=== PATIENT | male | born 1955 | race Caucasian/White ===

== ENCOUNTER 2022-12-06 17:19 | Emergency (ER) | payer MEDICARE, MEDICAID ==
[~2022-12-06] VITALS: Ht 170.2 cm; Wt 59.1 kg
[~2022-12-06 17:19] MED LIST: FERR324T3 PO; FLO0.4C PO; FOLI1TAB27 PO; LIDO700A32 TOP; MULT-25 PO; NO HOME MEDS; OXYC-150 PO; PANT40TA54 PO; THIA50TA10 PO
[2022-12-06 18:43] LABS: ALANINE AMINOTRANSFERASE 41 U/L (12-78); ALBUMIN 3.3 G/DL (3.4-5.0); ALBUMIN/GLOBULIN RATIO 0.9 (1.1-1.5); ALKALINE PHOSPHATASE 64 IU/L (46-116); ANION GAP 10 (8-16); ASPARTATE AMINO TRANSFERASE 30 U/L (10-37); BILIRUBIN,TOTAL 0.3 MG/DL (0.1-1.0); BLOOD UREA NITROGEN 58 MG/DL (7-18); BUN/CREATININE RATIO 10.8 (10.0-20.0); CALCIUM 8.4 MG/DL (8.5-10.1); CHLORIDE 106 MMOL/L (99-107); CREATININE 5.36 MG/DL (0.60-1.10); GLUCOSE 115 MG/DL (70-104); POTASSIUM 3.7 MMOL/L (3.5-5.1); SODIUM 141 MMOL/L (135-145); TOTAL CARBON DIOXIDE 25.1 MMOL/L (24-32); TOTAL PROTEIN 6.9 G/DL (6.4-8.2); eCRCL 11 ML/MIN; eGFR 11 ML/MIN
[2022-12-06 18:54] LABS: MEAN PLATELET VOLUME 7.3 FL (7.4-10.4); WHITE BLOOD COUNT 8.1 X10'3 (4.5-11.0)
[2022-12-06 18:56] LABS: BASOPHILS # (AUTO) 0.1 X10'3 (0-0.2); EOSINOPHILS # (AUTO) 0.2 X10'3 (0-0.9); EOSINOPHILS % (AUTO) 2.7 % (0-6); HEMATOCRIT 28.7 % (42.0-52.0); HEMOGLOBIN 9.7 g/dl (14.0-17.9); LYMPHOCYTES # (AUTO) 0.9 X10'3 (1.1-4.8); LYMPHOCYTES % (AUTO) 11.3 % (21-51); MEAN CORPUSCULAR HEMOGLOBIN 32.1 PG (27.0-31.0); MEAN CORPUSCULAR HGB CONC 33.8 g/dL (33.0-36.5); MONOCYTES # (AUTO) 0.6 X10'3 (0-0.9); MONOCYTES % (AUTO) 7.1 % (2-12); NEUTROPHILS # (AUTO) 6.3 X10'3 (1.8-7.7); NEUTROPHILS % (AUTO) 77.9 % (42-75); PLATELET COUNT 368 X10'3 (140-440); RED BLOOD COUNT 3.03 X10'6 (4.70-6.10); RED CELL DISTRIBUTION WIDTH 14.3 % (11.5-14.5)
[2022-12-06] MEDS ORDERED: oxyCODONE/APAP 10/325mg tablet PO ONE (21:25)
[2022-12-06] MEDS ORDERED: OXYC-150 PO (21:27)
[2022-12-06 22:34] VITALS: BP 127/77; PULSE 92; RESP 16; TEMP 98; O2SAT 97
== END 2022-12-06 22:36 | disposition home or self-care (01) ==
LOC: ER 17:20
DX: R33.9 Retention of urine, unspecified (principal); F17.200 Nicotine dependence, unspecified, uncomplicated; Z79.899 Other long term (current) drug therapy; Z88.8 Allergy status to other drugs, medicaments and biological substances
CPT/HCPCS: 36415; 80053; 85025; 93005; 99284

== ENCOUNTER 2022-12-11 11:38 | Emergency (ER) | payer MEDICARE, MEDICAID ==
[~2022-12-11] VITALS: Ht 170.2 cm; Wt 63.4 kg
[2022-12-11 13:21] VITALS: BP 152/78; PULSE 65; RESP 16; TEMP 97.7; O2SAT 98
--- NOTE | 2022-12-11 18:35 | NUR ---
I AGREE WITH THE ASSESSMENT PER Elliott BAR LVN.
== END 2022-12-11 13:23 | disposition home or self-care (01) ==
LOC: ER 11:39
DX: T83.031A Leakage of indwelling urethral catheter, initial encounter (principal); R33.9 Retention of urine, unspecified; Z46.6 Encounter for fitting and adjustment of urinary device
CPT/HCPCS: 99281; A4358; A5200; C1758

== ENCOUNTER 2022-12-13 15:48 | Emergency (ER) | payer MEDICARE, MEDICAID ==
[~2022-12-13] VITALS: Ht 172.7 cm; Wt 59.1 kg
[2022-12-13 15:55] VITALS: BP 193/109; PULSE 65; TEMP 96.5; O2SAT 94
[2022-12-13] MEDS ORDERED: LidoCAINE 2% Topical Jelly 11mL syringe TOP ONE (16:05)
[2022-12-13 16:24] VITALS: RESP 16
== END 2022-12-13 17:31 | disposition home or self-care (01) ==
LOC: ER 15:48
DX: T85.9XXA Unspecified complication of internal prosthetic device, implant and graft, initial encounter (principal)
CPT/HCPCS: 51702; 99284

== ENCOUNTER 2023-03-06 00:25 | Emergency (ER) | payer MEDICARE, MEDICAID ==
[~2023-03-06] VITALS: Ht 170.2 cm; Wt 62.0 kg
[~2023-03-06 00:25] MED LIST changes: -FLO0.4C PO
[2023-03-06 00:58] VITALS: BP 170/101; PULSE 86; RESP 18; TEMP 98.3; O2SAT 95
== END 2023-03-06 05:55 | disposition left against medical advice (07) ==
LOC: ER 00:26
DX: T83.098A Other mechanical complication of other urinary catheter, initial encounter (principal); Z53.21 Procedure and treatment not carried out due to patient leaving prior to being seen by health care provider
CPT/HCPCS: 99281

== ENCOUNTER 2023-05-14 22:05 | Emergency (ER) | payer MEDICARE, MEDICAID ==
[~2023-05-14] VITALS: Ht 170.2 cm; Wt 63.6 kg
[2023-05-14] MEDS ORDERED: FLO0.4C PO (23:09)
[2023-05-14 23:16] VITALS: BP 144/88; PULSE 89; RESP 20; TEMP 98.3; O2SAT 100
== END 2023-05-14 23:20 | disposition home or self-care (01) ==
LOC: ER 22:06
DX: R30.9 Painful micturition, unspecified (principal); Z79.899 Other long term (current) drug therapy
CPT/HCPCS: 99281

== ENCOUNTER 2023-07-15 22:33 | Emergency (ER) | payer MEDICARE, MEDICAID ==
[~2023-07-15] VITALS: Ht 170.2 cm; Wt 59.1 kg
[2023-07-15 23:07] VITALS: BP 136/82; PULSE 83; RESP 18; TEMP 98.3; O2SAT 99
== END 2023-07-16 02:21 | disposition left against medical advice (07) ==
LOC: ER 22:34
DX: Z46.6 Encounter for fitting and adjustment of urinary device (principal); Z53.21 Procedure and treatment not carried out due to patient leaving prior to being seen by health care provider

== ENCOUNTER 2023-09-05 06:23 | Emergency (ER) | payer MEDICARE, MEDICAID ==
[~2023-09-05] VITALS: Ht 170.2 cm; Wt 63.1 kg
[~2023-09-05 06:23] MED LIST changes: -FERR324T3 PO; +FLO0.4C PO; -FOLI1TAB27 PO; -LIDO700A32 TOP; -MULT-25 PO; -NO HOME MEDS; -OXYC-150 PO; -PANT40TA54 PO; -THIA50TA10 PO
[2023-09-05 06:44] VITALS: TEMP 97.8
[2023-09-05] MEDS: tamsulosin 0.4mg capsule PO ONE (08:20)
[2023-09-05] MEDS: phenazopyridine 100mg tablet PO ONE (08:20)
[2023-09-05] MEDS: LidoCAINE 2% Topical Jelly 11mL syringe (UROJET) TOP ONE (08:20)
[2023-09-05 08:54] LABS: BILIRUBIN,URINE NEGATIVE (Neg); CLARITY,URINE CLEAR (Clear); COLOR,URINE YELLOW (Yellow); GLUCOSE, URINE NEGATIVE (Neg); KETONES,URINE NEGATIVE (Neg); LEUKOCYTE ESTERASE ,URINE NEGATIVE (Neg); OCCULT BLOOD,URINE SMALL (Neg); PROTEIN,URINE NEGATIVE (Neg); UROBILINOGEN,URINE 0.2 E.U/dL (0.2-1.0)
[2023-09-05 08:57] LABS: UA COLLECTION TYPE STRAIGHT CATH
[2023-09-05 08:59] LABS: NITRITES, URINE NEGATIVE (Neg)
[2023-09-05 09:09] LABS: SQUAMOUS EPITHELIAL CELL,UR NONE SEEN /LPF (FEW)
[2023-09-05 09:11] LABS: BACTERIA,URINE FEW /HPF (Neg)
[2023-09-05] MEDS ORDERED: CEPH-585 PO (09:47)
[2023-09-05] MEDS ORDERED: FLO0.4C PO (09:47)
[2023-09-05] MEDS: cephalexin 250mg capsule PO ONE (10:02)
[2023-09-05 10:03] VITALS: BP 167/101; PULSE 79; RESP 14; O2SAT 100
== END 2023-09-05 10:10 | disposition home or self-care (01) ==
LOC: ER 06:23
DX: N39.0 Urinary tract infection, site not specified (principal); R33.9 Retention of urine, unspecified; F17.200 Nicotine dependence, unspecified, uncomplicated; Z79.899 Other long term (current) drug therapy
CPT/HCPCS: 81001; 87088; 99284; A4314

== ENCOUNTER 2023-09-26 21:21 | Emergency (ER) | payer MEDICARE, MEDICAID ==
[~2023-09-26] VITALS: Ht 170.2 cm; Wt 65.9 kg
[2023-09-26 21:44] VITALS: TEMP 98.8
[2023-09-26] MEDS: LIDOcaine 1% W/epiNEPHrine 1:100,000 20ml vial SQ ONE (22:55)
[2023-09-27 01:19] LABS: BILIRUBIN,URINE NEGATIVE (Neg); CLARITY,URINE CLEAR (Clear); COLOR,URINE STRAW (Yellow); GLUCOSE, URINE NEGATIVE (Neg); KETONES,URINE NEGATIVE (Neg); LEUKOCYTE ESTERASE ,URINE NEGATIVE (Neg); NITRITES, URINE NEGATIVE (Neg); OCCULT BLOOD,URINE NEGATIVE (Neg); PROTEIN,URINE NEGATIVE (Neg); UROBILINOGEN,URINE 0.2 E.U/dL (0.2-1.0)
[2023-09-27 01:20] LABS: UA COLLECTION TYPE CLN CATCH MIDSTREAM
[2023-09-27 01:36] VITALS: BP 159/89; PULSE 87; RESP 15; O2SAT 98
== END 2023-09-27 01:45 | disposition home or self-care (01) ==
LOC: ER 21:22
DX: D17.0 Benign lipomatous neoplasm of skin and subcutaneous tissue of head, face and neck (principal); F17.200 Nicotine dependence, unspecified, uncomplicated; Z79.899 Other long term (current) drug therapy; Z59.00 Homelessness unspecified; Z85.89 Personal history of malignant neoplasm of other organs and systems
CPT/HCPCS: 10060; 81003; 99283; Z7610

== ENCOUNTER 2024-05-02 02:31 | Emergency (ER) | payer MEDICARE, MEDICAID ==
[~2024-05-02] VITALS: Ht 170.2 cm; Wt 58.4 kg
[2024-05-02 02:51] LABS: BILIRUBIN,URINE NEGATIVE (Neg); CLARITY,URINE CLOUDY (Clear); COLOR,URINE YELLOW (Yellow); GLUCOSE, URINE 100 mg/dl (Neg); KETONES,URINE NEGATIVE (Neg); LEUKOCYTE ESTERASE ,URINE LARGE (Neg); NITRITES, URINE NEGATIVE (Neg); OCCULT BLOOD,URINE MODERATE (Neg); PROTEIN,URINE 30 mg/dl (Neg); UROBILINOGEN,URINE 0.2 E.U/dL (0.2-1.0)
[2024-05-02 02:54] LABS: UA COLLECTION TYPE VOIDED
[2024-05-02 03:00] LABS: BACTERIA,URINE 2+ /HPF (Neg); SQUAMOUS EPITHELIAL CELL,UR FEW /LPF (FEW); WBC,URINE TNTC /HPF (0-4)
[2024-05-02 03:04] LABS: BASOPHILS # (AUTO) 0.1 X10'3 (0-0.2); BASOPHILS % (AUTO) 0.7 % (0-1); EOSINOPHILS # (AUTO) 0.2 X10'3 (0-0.9); EOSINOPHILS % (AUTO) 2.2 % (0-6); HEMATOCRIT 30.6 % (42.0-52.0); LYMPHOCYTES # (AUTO) 1.3 X10'3 (1.1-4.8); LYMPHOCYTES % (AUTO) 11.5 % (21-51); MEAN CORPUSCULAR HEMOGLOBIN 30.5 PG (27.0-31.0); MEAN CORPUSCULAR HGB CONC 32.8 g/dL (33.0-36.5); MEAN CORPUSCULAR VOLUME 93.1 FL (78-98); MONOCYTES # (AUTO) 1.3 X10'3 (0-0.9); NEUTROPHILS % (AUTO) 73.6 % (42-75); PLATELET COUNT 427 X10'3 (140-440); RED BLOOD COUNT 3.29 X10'6 (4.70-6.10); RED CELL DISTRIBUTION WIDTH 14.5 % (11.5-14.5); WHITE BLOOD COUNT 10.9 X10'3 (4.5-11.0)
[2024-05-02 03:21] LABS: ALANINE AMINOTRANSFERASE 49 U/L (12-78); ALBUMIN 2.9 G/DL (3.4-5.0); ALBUMIN/GLOBULIN RATIO 0.5 (1.1-1.5); ALKALINE PHOSPHATASE 93 IU/L (46-116); ANION GAP 20 (8-16); ASPARTATE AMINO TRANSFERASE 43 U/L (10-37); BILIRUBIN,TOTAL 0.5 MG/DL (0.1-1.0); CALCIUM 6.5 MG/DL (8.5-10.1); CHLORIDE 103 MMOL/L (99-107); CREATININE 11.74 MG/DL (0.60-1.10); GLUCOSE 100 MG/DL (70-104); POTASSIUM 4.4 MMOL/L (3.5-5.1); SODIUM 139 MMOL/L (135-145); TOTAL CARBON DIOXIDE 15.8 MMOL/L (24-32); TOTAL PROTEIN 8.6 G/DL (6.4-8.2); eCRCL 5 ML/MIN; eGFR 4 ML/MIN
[2024-05-02 03:26] LABS: BLOOD UREA NITROGEN 166 MG/DL (7-18); BUN/CREATININE RATIO 14.1 (10.0-20.0)
[2024-05-02] MEDS ORDERED: CEPH-585 PO (04:12)
[2024-05-02] MEDS: CefTRIAXone 1000mg IM Kit (w/lidocaine diluent) IM ONE (04:48)
[2024-05-02 04:53] VITALS: BP 165/99; PULSE 95; RESP 16; TEMP 98.6; O2SAT 99
[2024-05-04] MEDS ORDERED: CIPR-202 PO (11:10)
== END 2024-05-02 04:55 | disposition home or self-care (01) ==
LOC: ER 02:31
DX: N39.0 Urinary tract infection, site not specified (principal)
CPT/HCPCS: 36415; 80053; 81001; 84145; 85025; 87088; 96372; 99283; J0696; 87077; 87186

== ENCOUNTER 2024-06-28 21:22 | Emergency (ER) | payer MEDICARE, MEDICAID ==
[~2024-06-28] VITALS: Ht 170.2 cm; Wt 47.5 kg
[~2024-06-28 21:22] MED LIST changes: -FLO0.4C PO; +TAMS-55 PO
[2024-06-28 21:43] VITALS: BP 106/82; PULSE 99; RESP 15; TEMP 98.6; O2SAT 98
--- NOTE | 2024-06-29 00:37 | Physician Documentation ---
History of Present Illness ~ General Chief Complaint: General Stated Complaint: MUTIPLE ISSUES Time Seen by MD: 00:36 Primary Medical Doctor: Jessica Vieira MD History of Present Illness Initial Comments Patient presents to the emergency room requesting his urostomy bags in tunnel cath taken out. I asked who his doctors ours that are managing and he states he has no doctors Medication Reconciliation Allergies: Coded Allergies: No Known Allergies (Unverified , 06/28/24) Scheduled Tamsulosin Hcl* (Flomax*), 1 CAP PO DAILY, (Reported) Past Medical History Past Medical History: *RENAL/*, *CANCER* Past Surgical History: noncontributory Patient History: Patient reports no known family medical history. Alcohol Use: Sober Lives In: Homeless Review of Systems ROS All review of systems negative except as per HPI Physical Exam Physical Exam Vital Signs: Temperature: 98.6, Source: Temporal, Heart Rate: 99, Respiratory Rate: 15, BP: 106/82, Pulse Oximetry: 98, Weight: 47.500 Physical Exam General: Patient is sleeping easily aroused and irritable Head: Normocephalic and atraumatic. Eyes: Conjunctival normal. EOMI. PERRL. ENT: Mucous membranes moist. Neck: Supple, trachea is midline. Chest: Clear to auscultation bilaterally without rales, rhonchi, or wheezes. There is no accessory muscle use or retractions. Tunneled cath in right upper chest wall no signs of infection Cardiac: RRR without murmurs, gallops, or rubs. Abd: Soft, nondistended, nontender, with normoactive bowel sounds. No guarding, rebound, or rigidity. Back: Two nephrostomy tubes in place that are functioning : Alston catheter placed that has functioning Progress Results/Orders Results/Orders Vital Signs 06/28/24 21:43 Temp 98.6 Pulse 99 Resp 15 B/P (MAP) 106/82 Pulse Ox 98 Medical Decision Making Findings Patient presents to the emergency room asking for his dialysis catheter be removed in his urostomy tubes to be pulled. He initially stated that he does not have any doctors. Upon review of medical records he has established at [facility] in his Dr. Dhillon on board regarding his kidneys. I will defer to them for management. I explained to him that we do not pull these tubes electively in the emergency room. No obvious signs of infection. Vital signs are stable and I do not feel emergent labs or imaging is necessary. We have given him new bags Departure Disposition: HOME / SELF CARE / HOMELESS Impression: Primary Impression: General medical exam Condition: Stable Discharge Instructions: General Discharge Instructions Additional Instructions: Follow up with your kidney doctor in [facility] for management of your lines Referrals: NO PRIMARY CARE PROVIDER (PCP) Signature Scribe Signature: No scribe Attestation: The note accurately reflects work and decisions made by me.Micah Olivo MD 06/29/24 01:21 MICAH OLIVO MD June 29, 2024 00:37
== END 2024-06-29 01:48 | disposition home or self-care (01) ==
LOC: ER 21:22
DX: Z00.8 Encounter for other general examination (principal)
CPT/HCPCS: 99281